=== PATIENT | male | born 1945 ===

== ENCOUNTER 2021-05-06 13:04 | Outpatient (CLI) | payer SELFPAY ==
--- NOTE | 2021-05-06 13:00 | RT.EKG_ITS ---
APPROVED REPORT Exam: Resting ECG Reason for Exam: afib Patient Location: O HR:44 bpm ECG Measurements Heart Rate 44 AXIS MS [id number] P [id number] QRSd 154 QRS -23 QT 434 T 259 QTc 372 Conclusion Atrial fibrillation...V-rate 41- 46, irreg A-activity Ventricular premature complex...V complex w/ short R-R interval Nonspecific intraventricular conduction delay...QRSd >115mS, not LBBB/RBBB Diffuse nondiagnostic ST-T abnormalities
== END 2021-05-06 13:05 | disposition home or self-care (01) ==
LOC: DI.CARD 13:05
PROVIDERS: Visit Provider Internal Medicine Cardiovascular Disease
DX: I48.91 Unspecified atrial fibrillation (principal)
CPT/HCPCS: 93010

== ENCOUNTER → 2021-05-06 13:25 | Outpatient (BNVA) | payer MEDICARE, OTHER, SELFPAY | PROVIDERS: PCP Internal Medicine; Referring Provider Internal Medicine Interventional Cardiology; Visit Provider Internal Medicine Cardiovascular Disease | DX: I48.21 Permanent atrial fibrillation (principal); I10 Essential (primary) hypertension; E11.9 Type 2 diabetes mellitus without complications | CPT/HCPCS: 93005; 99203 ==

== ENCOUNTER → 2022-01-06 13:01 | Outpatient (BNVA) | payer MEDICARE, OTHER, SELFPAY | PROVIDERS: PCP Internal Medicine; Referring Provider Internal Medicine; Visit Provider Internal Medicine Cardiovascular Disease | DX: I48.21 Permanent atrial fibrillation (principal); R00.1 Bradycardia, unspecified; R06.09 Other forms of dyspnea | CPT/HCPCS: 99214 ==

== ENCOUNTER → 2022-03-10 09:47 | Outpatient (BNVA) | payer MEDICARE, OTHER, SELFPAY | PROVIDERS: PCP Internal Medicine; Referring Provider Internal Medicine; Visit Provider Internal Medicine Cardiovascular Disease | DX: T81.72XA Complication of vein following a procedure, not elsewhere classified, initial encounter (principal); Z95.0 Presence of cardiac pacemaker | CPT/HCPCS: 93288 ==

== ENCOUNTER → 2022-06-09 14:03 | Outpatient (BNVA) | payer MEDICARE, OTHER, SELFPAY | PROVIDERS: PCP Internal Medicine; Referring Provider Internal Medicine; Visit Provider Internal Medicine Cardiovascular Disease | DX: Z95.0 Presence of cardiac pacemaker (principal); S80.11XD Contusion of right lower leg, subsequent encounter; X58.XXXD Exposure to other specified factors, subsequent encounter | CPT/HCPCS: 93279 ==